=== PATIENT | male | born 1980 | race Caucasian/White ===

== ENCOUNTER 2019-07-26 14:06 | Emergency (ER) | payer OTHER ==
[~2019-07-26] VITALS: Ht 188 cm; Wt 215.0 kg
[2019-07-26 14:27] VITALS: BP 170/99
--- NOTE | 2019-07-26 16:02 | NUR ---
NA X1
--- NOTE | 2019-07-26 16:15 | NUR ---
PT TO ROOM FROM XR
[2019-07-26] MEDS ORDERED: CYCLOBENZAPRINE 10 MG TABLET PO STA (16:24)
[2019-07-26] MEDS ORDERED: KETOROLAC 30 MG/1 ML IM ONE (16:30)
[2019-07-26] MEDS ORDERED: CYCLOBENZAPRINE 10 MG TABLET ONE (16:35)
[2019-07-26] MEDS ORDERED: KETOROLAC 30 MG/1 ML ONE (16:35)
--- NOTE | 2019-07-26 17:16 | NUR ---
Patient given discharge instructions and Rx, they have confirmed that they understand the instructions. Patient ambulatory with steady gait.
== END 2019-07-26 17:24 | disposition home or self-care (01) ==
LOC: ED 17:15
DX: M51.36 Other intervertebral disc degeneration, lumbar region (principal); M54.41 Lumbago with sciatica, right side; E66.9 Obesity, unspecified
CPT/HCPCS: 72110; 72220; 73564; 96372; 99283; J1885